=== PATIENT | female | born 1975 | race Caucasian/White ===

== ENCOUNTER 2021-12-20 20:01 | Inpatient (IN) ==
[2021-12-20 20:40] LABS: Bilirubin,Urine Negative (Negative); Blood,Urine Negative (Negative); Clarity,Urine Clear (Clear); Color,Urine Light-Yellow (Yellow); Glucose,Urine (UA) Normal (Normal); Ketones,Urine Negative (Negative); Leukocyte Esterase,Urine Negative (Negative); Nitrite,Urine Negative (Negative); PH,Urine 5.5 pH Units (5.0-8.0); Protein,Urine Negative (Neg-Trace); Specific Gravity,Urine 1.019 (1.010-1.025); Urobilinogen,Urine Normal (Normal)
[2021-12-20 20:45] LABS: Basophils # 0.1 K/mcL (0.0-0.2); Eosinophils # 0.9 K/mcL (0.0-0.6); Eosinophils % 6.3 %; Hematocrit 51.3 % (35.3-44.9); Hemoglobin 16.5 g/dL (11.5-15.4); Immature Granulocytes % 0.5 % (0-4); Lymphocytes # 3.7 K/mcL (0.6-4.6); Lymphocytes % 25.2 %; Mean Corpuscular HGB Conc 32.2 g/dL (31.6-35.5); Mean Corpuscular Hemoglobin 28.6 pg (28.0-33.3); Mean Corpuscular Volume 89.1 fL (83.0-100.0); Mean Platelet Volume 11.1 fL (9.4-12.4); Neutrophils # 8.7 K/mcL (1.6-8.9); Platelet Count 315 K/mcL (140-400); Red Blood Count 5.76 M/mcL (3.82-4.97); Red Cell Distribution Width 13.4 % (11.5-14.5); White Blood Count 14.5 K/mcL (4.3-11.1)
[2021-12-20 20:52] LABS: Amphetamine Screen,Urine Negative ng/mL (Cutoff=1000); Barbiturate Screen,Urine Negative ng/mL (Cutoff=200); Benzodiazepines Screen,Urine Negative ng/mL (Cutoff=200); Cannabinoid Screen,Urine Negative ng/mL (Cutoff = 50); Cocaine Screen,Urine Negative ng/mL (Cutoff= 300); Opiate Screen,Urine Negative ng/mL (Cutoff=300); Phencyclidine Screen,Urine Negative ng/mL (Cutoff=25)
[2021-12-20 20:59] LABS: Estimated Average Glucose 143 mg/dl; Hemoglobin A1C 6.6 %
[2021-12-20 21:10] LABS: Acetaminophen < 10 mcg/mL (10-20); Alanine Aminotransferase 19 Units/L (7-52); Albumin 4.4 g/dL (3.5-5.7); Albumin/Globulin Ratio 1.3 (1.1-2.2); Alkaline Phosphatase 66 Units/L (34-104); Aspartate Amino Transferase 17 Units/L (13-39); BUN/Creatinine Ratio 23 (6-26); Bilirubin,Indirect 0.3 mg/dL (0.0-1.0); Bilirubin,Total 0.3 mg/dL (0.3-1.0); Blood Urea Nitrogen 23 mg/dL (6-20); Calcium 9.8 mg/dL (8.6-10.3); Carbon Dioxide 24 mEq/L (23-29); Chloride 98 mEq/L (98-107); Chol/HDL Ratio 5.5 (0-4.9); Cholesterol 235 mg/dL (< 200); Ethanol < 10 mg/dL (Less than 10); Globulin 3.4 g/dL (2.4-3.5); Glucose 200 mg/dL (70-105); HDL Cholesterol 43 mg/dL (40-59); Osmolality,Calculated 285 (280-300); Potassium 4.2 mEq/L (3.5-5.1); Salicylate < 2.5 mg/dL (15.0-30.0); Sodium 133 mEq/L (136-145); Total Protein 7.8 g/dL (6.4-8.9); Triglycerides 407 mg/dL (< 150); eGFR For African Americans > 60 (> 60); eGFR For Non-African Americans 59 (> 60)
[2021-12-20 21:18] LABS: Thyroid Stimulating Hormone 5.349 mcIU/mL (0.340-5.600)
[2021-12-21 00:10] LABS: Influenza A PCR Negative (Negative); Influenza B PCR Negative (Negative); Resp. Syncytial Virus PCR Negative (Negative)
[2021-12-21 00:12] LABS: SARS-CoV-2 by PCR (In House) Negative (Negative)
[2021-12-21] MEDS ORDERED: haloperidoL 5 MG TABLET PO PRN (00:38)
[2021-12-21] MEDS ORDERED: *HR* LORazepam 2 MG/ML VIAL IM PRN (00:38)
[2021-12-21] MEDS ORDERED: Haloperidol Lactate 5 MG/ML VIAL IM PRN (00:38)
[2021-12-21] MEDS ORDERED: Ibuprofen 400 MG TABLET PO PRN (00:38)
[2021-12-21] MEDS ORDERED: *HR* LORazepam 1 MG TABLET PO PRN (00:38)
[2021-12-21] MEDS ORDERED: traZODone 50 MG TABLET PO PRN (00:38)
[2021-12-21] MEDS: Nicotine 21 MG PATCH.TD24 TD SCH (02:57)
[2021-12-21] MEDS ORDERED: MOM Conc 10 ML UD.LIQ PO PRN (10:37)
[2021-12-21] MEDS: ARIPiprazole 10 MG TABLET PO SCH (12:33)
[2021-12-21] MEDS: Gabapentin 300 MG CAPSULE PO SCH ×2 (14:47→21:06)
[2021-12-21] MEDS: hydrOXYzine pamoate 25 MG CAPSULE PO PRN (17:49)
[2021-12-21] MEDS: traZODone 50 MG TABLET PO PRN (21:05)
[2021-12-21] MEDS: Acetaminophen 325 MG TABLET PO PRN (21:05)
[2021-12-22] MEDS: Mag Hydrox/Al Hydrox/Simeth 30 ML UDC PO PRN ×2 (04:10→16:40)
[2021-12-22] MEDS: Nicotine 21 MG PATCH.TD24 TD SCH ×2 (09:31→11:19)
[2021-12-22] MEDS: Gabapentin 300 MG CAPSULE PO SCH ×3 (09:32→20:45)
[2021-12-22] MEDS: ARIPiprazole 10 MG TABLET PO SCH (09:32)
[2021-12-22] MEDS: Iron Polysaccharide Complex 150 MG CAPSULE PO SCH (09:32)
[2021-12-22] MEDS: Acetaminophen 325 MG TABLET PO PRN (17:54)
[2021-12-22] MEDS: hydrOXYzine pamoate 25 MG CAPSULE PO PRN (20:43)
[2021-12-22] MEDS: traZODone 50 MG TABLET PO PRN (20:47)
[2021-12-23] MEDS: Mag Hydrox/Al Hydrox/Simeth 30 ML UDC PO PRN (02:57)
[2021-12-23] MEDS: Gabapentin 300 MG CAPSULE PO SCH ×2 (09:03→15:28)
[2021-12-23] MEDS: Iron Polysaccharide Complex 150 MG CAPSULE PO SCH (09:03)
[2021-12-23] MEDS: ARIPiprazole 10 MG TABLET PO SCH (09:03)
[2021-12-23] MEDS: Nicotine 21 MG PATCH.TD24 TD SCH (09:22)
[2021-12-23 09:27] VITALS: BP 132/87; PULSE 93; TEMP 97.6; O2SAT 86
== END 2021-12-23 17:30 | disposition home or self-care (01) | DRG 885 ==
LOC: EMEROOARM 20:01 → 1ANU 12-21 00:41
PROVIDERS: ADMIT Psychiatry & Neurology Psychiatry; ATTEND Psychiatry & Neurology Psychiatry